=== PATIENT | female | born 1960 | race Caucasian/White ===

== ENCOUNTER 2019-09-20 07:10 | Emergency (ER) | payer OTHER ==
[2019-09-20 07:29] VITALS: BP 108/66
--- NOTE | 2019-09-20 07:49 | ED ---
Throat Pain/Nasal Congestion - HPI Summary HPI Summary: 58 yr old female with the complaint of sinus pressure, post nasal drip, sore throat, coughing yellow sputum. Onset about a week ago before she left [facility]. She is here visiting her mom. She has no other complaints. She feels a lot of pressure in her sinuses and also her throat very sore. Symptoms are moderate. no other complaints. - History of Current Complaint Chief Complaint: UCGeneralIllness Time Seen by Provider: 09/20/19 07:33 - Allergies/Home Medications Allergies/Adverse Reactions: Allergies Allergy/AdvReac Type Severity Reaction Status Date / Time morphine Allergy Anxiety Verified 09/20/19 07:29 Home Medications: Home Medications Levothyroxine TAB* [Synthroid TAB*] 100 mcg PO DAILY 09/20/19 [History Confirmed 09/20/19] Valacyclovir HCl [Valacyclovir] 500 mg PO DAILY 09/20/19 [History Confirmed ] predniSONE TAB* [Deltasone 1 MG TAB*] 3 mg PO DAILY 09/20/19 [History Confirmed 09/20/19] PMH/Surg Hx/FS Hx/Imm Hx Endocrine/Hematology History: Reports: Hx Thyroid Disease - Surgical History Surgery Procedure, Year, and Place: thyroidectomy, bladder sling Infectious Disease History: No Infectious Disease History: Denies: Traveled Outside the in Last 30 Days - Family History Known Family History: Positive: None - Social History Alcohol Use: Rare Substance Use Type: Reports: None Smoking Status (MU): Never Smoked Tobacco Review of Systems Positive: Fever Positive: Sore Throat, Nasal Discharge Positive: Cough All Other Systems Reviewed And Are Negative: Yes Physical Exam Triage Information Reviewed: Yes Vital Signs On Initial Exam: Initial Vitals Temp Pulse Resp BP Pulse Ox 100.0 F 102 16 108/66 97 09/20/19 07:24 09/20/19 07:24 09/20/19 07:24 09/20/19 07:24 09/20/19 07:24 Vital Signs Reviewed: Yes Appearance: Positive: Well-Appearing, No Pain Distress Skin: Positive: Warm, Skin Color Reflects Adequate Perfusion Head/Face: Positive: Normal Head/Face Inspection Eyes: Positive: EOMI ENT: Positive: Pharyngeal erythema, TM red - right with mild retraction, Sinus tenderness Neck: Positive: Nontender Respiratory/Lung Sounds: Positive: Clear to Auscultation, Breath Sounds Present Cardiovascular: Positive: RRR. Negative: Murmur Abdomen Description: Negative: Distended Musculoskeletal: Positive: Strength/ROM Intact Neurological: Positive: Sensory/Motor Intact, Alert, Oriented to Person Place, Time, CN Intact II-III, Speech Normal Psychiatric: Positive: Normal Diagnostics - Vital Signs Vital Signs Temp Pulse Resp BP Pulse Ox 09/20/19 07:24 100.0 F 102 16 108/66 97 - Laboratory Lab Results: Lab Results 09/20/19 Range/Units 07:34 Group A Strep Rapid Negative (Negative) Lab Statement: Any lab studies that have been ordered have been reviewed, and results considered in the medical decision making process. EENT Course/Dx - Course Course Of Treatment: 58 yr old with sinusitis, and right OM. Rx Augmentin. - Diagnoses Provider Diagnoses: Bacterial sinusitis, Right otitis media Discharge ED - Sign-Out/Discharge Documenting (check all that apply): Patient Departure All imaging exams completed and their final reports reviewed: No Studies - Discharge Plan Condition: Good Disposition: HOME Prescriptions: Amoxicillin/Clavulanate TAB* [Augmentin TAB 875*] 875 mg PO BID #20 tab Patient Education Materials: Sinusitis (ED) Referrals: No Primary Care Phys,NOPCP [Primary Care Provider] - [facility] [Outside] - 1 Day - Billing Disposition and Condition Condition: GOOD Disposition: Home
== END 2019-09-20 08:01 | disposition home or self-care (01) ==
LOC: UCCORT 07:10
DX: J32.8 Other chronic sinusitis (principal); B96.89 Other specified bacterial agents as the cause of diseases classified elsewhere; H66.91 Otitis media, unspecified, right ear; J02.9 Acute pharyngitis, unspecified; R05 Cough; E07.9 Disorder of thyroid, unspecified; Z88.5 Allergy status to narcotic agent; Z79.890 Hormone replacement therapy
CPT/HCPCS: 87651; 99202; G0463

== ENCOUNTER 2019-09-26 07:59 | Emergency (ER) | payer OTHER ==
[2019-09-26 08:09] VITALS: BP 117/74
--- NOTE | 2019-09-26 08:59 | UC ---
Respiratory Complaint HPI - HPI Summary HPI Summary: 58-year-old woman comes in with a chief complaint of upper respiratory tract infection symptoms and chest congestion. 10 days ago started with runny nose sore throat ear pain. Patient was started on clarithromycin 500 mg by mouth twice a day on September 20, 2019. Sinuses are still irritated but now the infections going down into the chest and the patient's having more coughing and chest congestion. Patient is on prednisone 3 mg a day for an autoimmune disorder. No fevers measured. No history of asthma. - History of Current Complaint Chief Complaint: UCGeneralIllness Stated Complaint: SINUS PRESSURE, COUGH Time Seen by Provider: 09/26/19 08:13 Pain Intensity: 0 - Allergies/Home Medications Allergies/Adverse Reactions: Allergies Allergy/AdvReac Type Severity Reaction Status Date / Time morphine Allergy Anxiety Verified 09/26/19 08:09 PMH/Surg Hx/FS Hx/Imm Hx Previously Healthy: Yes - auto immune d/o Endocrine History: Hypothyroidism - Surgical History Surgical History: Yes Surgery Procedure, Year, and Place: thyroidectomy, bladder sling - Family History Known Family History: Positive: None - Social History Alcohol Use: Rare Substance Use Type: None Smoking Status (MU): Never Smoked Tobacco Review of Systems All Other Systems Reviewed And Are Negative: Yes Constitutional: Positive: Other - see hpi Skin: Positive: Negative Eyes: Positive: Negative ENT: Positive: Sore Throat, Ear Ache, Nasal Discharge, Sinus Congestion, Sinus Pain/Tenderness Respiratory: Positive: Shortness Of Breath, Cough, Other - see hpi Cardiovascular: Positive: Negative Gastrointestinal: Positive: Negative Motor: Positive: Negative Neurovascular: Positive: Negative Musculoskeletal: Positive: Negative. Negative: Calf Tenderness Neurological: Positive: Negative Psychological: Positive: Negative Is Patient Immunocompromised?: No Physical Exam Triage Information Reviewed: Yes Appearance: No Pain Distress, Well-Nourished, Ill-Appearing - mild Vital Signs: Initial Vital Signs Temp 98.4 F 09/26/19 08:06 Pulse 81 09/26/19 08:06 Resp 18 09/26/19 08:06 BP 117/74 09/26/19 08:06 Pulse Ox 97 09/26/19 08:06 Vital Signs Reviewed: Yes Eye Exam: Normal Eyes: Positive: Conjunctiva Clear ENT: Positive: Pharyngeal erythema, Nasal congestion, Nasal drainage, TMs normal Neck: Positive: Supple Respiratory: Positive: No respiratory distress, Rhonchi Cardiovascular: Positive: RRR Musculoskeletal: Positive: Strength Intact, ROM Intact Neurological: Positive: Alert Psychological: Positive: Age Appropriate Behavior Skin Exam: Normal Respiratory Course/Dx - Course Course Of Treatment: Engineer Soils: Vince Robin ([id number]) Cafe Or Restaurant Manager: DONITA (JUAN MANUELANCE) Report Date: 09/26/2019 08:18:00 Report Status: Final Start of Report Content Patient Name: Alice POLK Medical Record#: [id number] Ordering Physician: Ashvin Soto MD Acct.#: [id number] : 09/1960 Age: 58 Sex: F Location: [facility] Exam Date: 09/26/19817 ADM Status: REG ER Order Information: CHEST PA LAT 2 VWS Accession Number: [id number] CPT: 39005 INDICATION: Cough, chest congestion COMPARISON: There are no relevant prior studies available for comparison. TECHNIQUE: Dual-energy PA and lateral views of the chest were obtained. FINDINGS: The lungs are clear. There is no pleural effusion. The cardiomediastinal silhouette is within normal limits. There are surgical clips in the low anterior neck. The upper abdominal contents are normal. Osseous structures are unremarkable. IMPRESSION: 1. No acute cardiopulmonary process. 2. Postoperative changes in the low anterior neck. < Electronically signed by Vince Robin MD in OV> 09/26/19856 Dictated By: Vince Robin MD Dictated Date/Time: 09/26/19854 Transcribed Date/Time: 854 Copy to: CC:No Primary Care Phys,NOPCP ; Ashvin Soto MD Imaging - [facility] Imaging - [facility] Imaging - [facility] [address] [facility] [address] [place], [place] [id number] [place] [id number] [place] [id number] ph ([phone]) ph ([phone]) ph ([phone]) End of Report Content ========= Patient's been on clarithromycin 500 mg by mouth twice a day for 6 days. She is worsening rather than improving. She is on prednisone 3 mg by mouth a day for immune disorder. Have concern for extension of infection. To maintain possibilities are that this is a viral infection and no antibiotic will help or that there is resistance to the clarithromycin. We will switched to doxycycline 100 mg by mouth twice a day. Also prescribed albuterol for the bronchospasm which the patient has used in the past. Patient get reevaluated if not improving or worse. - Differential Dx/Diagnosis Provider Diagnosis: Bronchitis with bronchospasm Discharge ED - Sign-Out/Discharge Documenting (check all that apply): Patient Departure All imaging exams completed and their final reports reviewed: Yes - Discharge Plan Condition: Stable Disposition: HOME Prescriptions: Albuterol HFA INHALER* [Ventolin HFA Inhaler*] 2 puff INH Q4H PRN #1 mdi PRN Reason: Wheezing DOXYcycline CAP(*) [DOXYcycline 100MG CAP(*)] 100 mg PO BID #20 cap Patient Education Materials: Acute Bronchitis (ED), Bronchospasm (ED) Referrals: [facility] [Outside] Additional Instructions: FOLLOW UP WITH YOUR DOCTOR IF NOT COMPLETELY IMPROVED. GO TO THE EMERGENCY DEPARTMENT IF NOT IMPROVING OR YOUR CONDITION WORSENS OR ANY QUESTIONS OR CONCERNS. - Billing Disposition and Condition Condition: STABLE Disposition: Home
== END 2019-09-26 09:23 | disposition home or self-care (01) ==
LOC: UCCORT 07:59
DX: J20.9 Acute bronchitis, unspecified (principal); H92.09 Otalgia, unspecified ear; J34.89 Other specified disorders of nose and nasal sinuses; D89.89 Other specified disorders involving the immune mechanism, not elsewhere classified; Z88.5 Allergy status to narcotic agent
CPT/HCPCS: 71046; 99212; G0463